=== PATIENT | female | born 2000 | race Asian ===

== ENCOUNTER → 2020-01-17 14:56 | Outpatient (CLI) | payer BC, SELFPAY ==
--- NOTE | 2020-01-17 14:57 | DI.ECHO.S_ITS ---
[facility] +---------+ : : [address] : [address] : : : : [id number] : : : : Phone: [phone]+ Echocardiogram Report + + :Name: DAPHNE SANCHEZ Study Date: 01/17/2020 Height: 64.5 in: :[facility] Weight: 115 lb : : Gender: Female BSA: 1.6 m2 : :: 2000 Age: 19 yrs BP: 114/88 mmHg: :Reason For Study: Father Bicuspid Valve, Sister has Pulmonic : :Stenosis : :Ordering Physician: PRASANNA, : :JOHN Performed By: Alyssa Garsia : :Referring: JOHN MIMS : + + Interpretation Summary Normal sinus rhythm. Normal LV size, wall thickness, wall motion and LV systolic function. EF is 60-65%. Normal chamber sizes. No significant valvular abnormalities. Specifically, no evidence of bicuspid aortic valve. No prior study available for comparison. Procedure: A two-dimensional transthoracic echocardiogram with color flow and Doppler was performed. The study quality was technically adequate. There is no prior echocardiogram noted for this patient. The patient was in normal sinus rhythm during the exam. The heart rate ranged between 68-80 bpm during the study. Left Ventricle: The left ventricle is normal in size. There is normal left ventricular wall thickness. The ejection fraction is estimated to be 60-65%. Diastolic parameters suggest probable normal left ventricular diastolic function and normal filling pressures. Right Ventricle: The right ventricle is normal in size and function. Atria: The left atrial size is normal. Right atrial size is normal. There is no Doppler evidence for an interatrial shunt. Mitral Valve: The mitral valve is normal in structure and function. Aortic Valve: The aortic valve is trileaflet. The aortic valve opens well. There is no aortic valve stenosis. No aortic regurgitation is present. Tricuspid Valve: The tricuspid valve is normal in structure and function. Pulmonary artery pressures cannot be estimated because of the lack of a measurable TR jet velocity but the IVC suggests a CVP of around 3 mmHg. There is trace tricuspid regurgitation. Pulmonic Valve: The pulmonic valve leaflets are thin and pliable; valve motion is normal. There is no pulmonic valvular stenosis. There is trace pulmonic regurgitation. Great Vessels: The aortic root is normal size. The dimensions of the ascending aorta are normal. The pulmonary artery is normal size. The IVC is of normal diameter and collapses greater than 50% with a sniff. This suggests a low right atrial pressure of 3 mm Hg. Pericardium/ Pleura There is no pericardial effusion. There is no pleural effusion. MMode/2D Measurements & Calculations LVIDd: 3.9 cm LVOT diam: 2.0 cm LVIDs: 2.7 cm Ao root diam: 2.6 cm FS: 32.1 % asc Aorta Diam: 2.3 cm EPSS: 0.60 cm Ao Arch Diam (Prox Trans): 1.8 cm IVSd: 0.69 cm LVPWd: 0.61 cm LV diana. diameter/BSA (cm/m^2): 2.5 LV sys. diameter/BSA (cm/m^2): 1.7 LA A2 area: 12.8 cm2 RA long axis: 3.5 cm LA A4 area: 10.8 cm2 RA area: 9.3 cm2 LA length (vol): 4.0 cm RA vol: 20.9 ml LA vol: 29.0 ml RA : 13.4 ml/m2 LA vol index: 18.7 ml/m2 IVC diam: 1.6 cm RVD1 (basal): 2.3 cm TAPSE: 2.0 cm Doppler Measurements & Calculations Ao V2 max: 110.7 cm/sec LVOT Max Moncho: 87.9 cm/sec Ao V2 mean: 74.3 cm/sec LV V1 max P.1 mmHg Ao max P.9 mmHg LV V1 VTI: 18.4 cm Ao mean P.5 mmHg MARTINE(I,D): 2.4 cm2 Ao V2 VTI: 23.8 cm MARTINE(V,D): 2.4 cm2 sev ratio: 0.78 MARTINE indexed to BSA (cm^2/m^2): 1.5 MV E max moncho: 81.4 cm/sec PA V2 max: 103.8 cm/sec MV A max moncho: 39.5 cm/sec PA V2 mean: 61.8 cm/sec MV E/A: 2.1 PA mean P.9 mmHg Med Peak E' Moncho: 13.6 cm/sec PA pr(Accel): 22.5 mmHg E/E' med: 6.0 Lat Peak E' Moncho: 17.4 cm/sec E/E' lat: 4.7 E/e' average: 5.3 MV dec time: 0.16 sec SVLVOT): 56.6 ml Electronically signed by: Xiomara Uriostegui M.D. on Reading Physician:01/18/2020 12:43 AM
== END ==
PROVIDERS: PCP Family Medicine; Referring Provider Family Medicine; Visit Provider Family Medicine
DX: Z13.6 Encounter for screening for cardiovascular disorders (principal); Z82.79 Family history of other congenital malformations, deformations and chromosomal abnormalities
CPT/HCPCS: 93306

== ENCOUNTER 2020-02-18 16:48 | Emergency (ER) | payer BC, SELFPAY ==
[2020-02-18] VITALS (7 sets, daily range): BP systolic 104–117; BP diastolic 68–81; PULSE 63–87; RESP 14–18; TEMP 36.7; O2SAT 99–100; BMI 20.6
[2020-02-18 17:24] LABS: Bacteria Urine Many (>30); Culture Indicated Urine Specimen Cultured; RBC Urine >100/HPF (0-5/HPF); Squamous Epithelial Cell Urine 0-1 /HPF (0-5/HPF); WBC Urine 10-30/HPF (0-5/HPF)
[2020-02-18] MEDS: SODIUM CHLORIDE 0.9% 1,000 ML 1000 ML IV (17:34)
--- NOTE | 2020-02-18 17:39 | ED_ITS ---
HPI - Abdominal Pain General Chief Complaint: Abdominal Pain Stated Complaint: abdominal cramps, nausea past hour Time Seen by Provider: 02/18/20 16:50 Source: patient Mode of arrival: Ambulatory Limitations: no limitations History of Present Illness HPI narrative: 19F non smoker, otherwise healthy female presents with her mother and a chief complaint of suprapubic tenderness with nausea. She denies any fever chills. She denies any vaginal bleeding or discharge. She does have blood in her urine. She states her pain is worse with motion and improves with rest. She is otherwise well and free of complaint. She went to the walk in clinic and was sent here. complaint: other Onset (ago): hour(s) Pain Consistency: constant Location: suprapubic Severity: mild Quality: cramping Radiation: none Relieving factors: rest Exacerbating factors: movement Associated symptoms: nausea and vomiting Related Data Patient : No Previous Rx's Medication Instructions Recorded cephalexin [Keflex] 500 mg PO QID 7 Days #28 cap 02/18/20 ondansetron 4 mg PO TID-QID PRN #10 tab 02/18/20 Allergies Allergy/AdvReac Type Severity Reaction Status Date / Time No Known Drug Allergies Allergy Verified 12/16/19 14:44 Review of Systems Constitutional Constitutional: Denies chills, Denies fatigue, Denies fever(s), Denies frequent falls, Denies lethargy and Denies weakness Eyes Eyes: Denies change in vision, Denies eye discharge, Denies irritation and Denies loss of vision ENT Ears, Nose, Mouth, and Throat: Denies change in voice, Denies dizziness, Denies neck pain, Denies sore throat and Denies throat swelling Cardiovascular Cardiovascular: Denies chest pain, Denies irregular heart rhythm, Denies lightheadedness, Denies palpitations, Denies dyspnea, Denies dyspnea on exertion and Denies orthopnea Respiratory Respiratory: Denies cough, Denies dyspnea, Denies dyspnea on exertion and Denies wheezing Gastrointestinal Gastrointestinal: Denies abdominal pain, Denies change in bowel habits, Denies diarrhea, Denies nausea and Denies vomiting Genitourinary Comments: suprapubic pain, hematuria Musculoskeletal Musculoskeletal: Denies neck pain and Denies numbness Integumentary/Breasts Skin/Breast: Denies pruritus, Denies erythema, Denies rash and Denies wounds Neurologic Neurologic: Denies behavioral changes, Denies confusion, Denies dizziness, Denies frequent falls, Denies loss of vision, Denies numbness and Denies weakness Psychiatric Psychiatric: Denies anxiety, Denies behavioral changes, Denies confusion, Denies depression, Denies homicidal ideation and Denies suicidal ideation Endocrine Endocrine: Denies fatigue, Denies flushing and Denies palpitations Hematologic/Lymphatic Hematologic/Lymphatic: Denies easy bruising Allergic/Immunologic Allergic/Immunologic: Denies urticaria, Denies throat swelling and Denies wheezing Patient History Surgical History H/O wisdom tooth extraction (Resolved) Family History Father Mitral valve replaced Grandfather Hyperlipidemia Social History marital status: unmarried,single occupational status: student Smoking Status: Never smoker alcohol intake: never substance use type: does not use Smoking Status: Never smoker Substance Use Type: does not use Exam Narrative Exam Narrative: GENERAL: [19] year old patient appears stated age. Well- nourished, well-developed patient, in mild distress. HEAD: Atraumatic. Normocephalic. EYES: Pupils equal round and reactive. Extraocular motions intact. No scleral icterus. No injection or drainage. ENT: Nose without bleeding, purulent drainage. Throat without erythema, tonsillar hypertrophy or exudate. Airway patent. NECK: Trachea midline. Non tender CARDIOVASCULAR: Regular rate and rhythm without murmurs, gallops, or rubs. RESPIRATORY: Clear to auscultation. Breath sounds equal bilaterally. No wheezes, rales, or rhonchi. GASTROINTESTINAL: Abdomen soft, mildly tender in suprapubic region, nondistended. EXTREMITIES: No edema or joint tenderness. BACK: Nontender without deformity or crepitance. No flank tenderness. NEURO: AOx3. SKIN: No rash or erythema of visible areas Initial Vital Signs Initial Vital Signs: Vital Signs Temperature 98.0 F 02/18/20 17:25 Pulse Rate 75 02/18/20 17:25 Respiratory Rate 16 02/18/20 17:25 Blood Pressure 115/80 02/18/20 17:25 Pulse Oximetry 100 02/18/20 17:25 Course Orders Ordered: ED Orders 02/18/20 16:59 Complete Blood Count AUTO DIFF Stat Comprehensive Metabolic Panel Stat 02/18/20 17:04 Urine Culture Stat Urine Microscopic Stat Discontinued Medications Cefazolin Sodium (Keflex 250 Mg Prepack) 1 bottle MISC SEEINSTR ONE Stop: 02/18/20 18:46 Sodium Chloride (Normal Saline 0.9%) 1,000 mls @ 1,000 mls/hr IV BOLUS ONE Stop: 02/18/20 17:58 Last Infusion: 02/18/20 17:44 Dose: 0 mls/hr Documented by: Admin: 02/18/20 17:34 Dose: 1,000 mls/hr Documented by: ALYSE Ceftriaxone Sodium/Dextrose (Rocephin) 1 gm in 50 mls @ 100 mls/hr IV NOW ONE Stop: 02/18/20 18:04 Last Admin: 02/18/20 18:50 Dose: Not Given Documented by: XIMENA Ondansetron HCl (Zofran Odt Prepack) 1 bottle MISC SEEINSTR ONE Stop: 02/18/20 18:46 Vital Signs Vital signs: Vital Signs - 8 hr 02/18/20 17:25 02/18/20 17:28 02/18/20 17:29 Temperature 98.0 F Pulse Rate 75 68 Respiratory Rate 16 14 Blood Pressure 115/80 114/81 Pulse Oximetry 100 100 02/18/20 17:30 02/18/20 18:00 02/18/20 18:30 Temperature Pulse Rate 67 63 87 Respiratory Rate 18 Blood Pressure 115/80 107/69 117/77 Pulse Oximetry 100 100 100 MDM - Abdominal Pain Lab Data Labs: Lab Results 02/18/20 Range/Units 17:04 Urine RBC >100/hpf H (0-5/HPF) Urine WBC 10-30/hpf H (0-5/HPF) Ur Squamous Epith Cells 0-1 /hpf (0-5/HPF) Urine Bacteria Many (>30) H (None) Ur Culture Indicated? Specimen cultured Point of care testing: Point of Care Testing Test Results Negative Urine Dip Bedside Urine Glucose Negative Bedside Urine Bilirubin + 1 Bedside Urine Ketone +/- 5 Urine Specific [place] 1.030 Bedside Urine Occult Blood +++ Bedside Urine pH 5.0 Bedside Urine Protein ++ 100 Bedside Urine Urobilinogen +/- 1mg Bedside Urine Nitrite + Positive Bedside Urine Leukocytes ++ 125 Esterase MDM Narrative Medical decision making narrative: Patient very much opposed to an IV, in fact 1 was placed and caused her discomfort so she demanded it be removed. I had extensive discussion with her and her mother about my opinion that this is likely to make her feel better much quicker though I do agree it is unlikely she has any significant underlying diagnosis. She has been given extensive return precautions and has the capacity to understand and repeat these. She has had her questions answered to her apparent satisfaction. Discharge Plan Departure Patient Disposition: Home Clinical Impression: UTI (urinary tract infection) Qualifiers: Urinary tract infection type: acute cystitis Hematuria presence: with hematuria Qualified Code(s): N30.01 - Acute cystitis with hematuria Instructions: DI for Urinary Tract Infection (UTI) Activity Restrictions/Additional Instructions: *You have been diagnosed with [acute urinary tract infection with cystitis and hematuria] *What to do: *Take medications as directed *Follow up with your primary care provider in 2-3 days, call for an appointment. Let them know you were seen in the Emergency Department and that we ask that you be seen in follow up *Return to ER if you should have any new, worsening or concerning symptoms, such as [fever, shaking chills, increasing pain or other bothersome symptoms] Prescriptions: New cephalexin [Keflex] 500 mg capsule 500 mg PO QID 7 Days Qty: 28 RF: 0 ondansetron 4 mg tablet,disintegrating 4 mg PO TID-QID PRN (Reason: nausea and vomiting) Qty: 10 RF: 0 Referrals: Awa Brown DO [Primary Care Provider] -
[2020-02-18] MEDS: cephALEXin 250 MG PREPACK 1 BOTTLE MISC (19:02)
[2020-02-18] MEDS: ONDANSETRON 4 MG ODT PREPACK 1 BOTTLE MISC (19:03)
== END 2020-02-18 19:15 | disposition home or self-care (01) ==
PROVIDERS: Emergency Provider Emergency Medicine; PCP Family Medicine
DX: N30.01 Acute cystitis with hematuria (principal)
CPT/HCPCS: 36415; 81003; 81015; 81025; 87086; 99283; 99284

== ENCOUNTER → 2020-09-13 12:30 | Outpatient (CLI) | payer BC, SELFPAY ==
[2020-09-13] MEDS: COVID-19 VACC #1, MRNA(MOD) 100 MCG/0.5 ML VIAL IM (12:36)
== END ==
PROVIDERS: PCP Family Medicine; Visit Provider Internal Medicine
DX: Z23 Encounter for immunization (principal)
CPT/HCPCS: 0011A; 91301

== ENCOUNTER → 2020-10-11 12:30 | Outpatient (CLI) | payer BC, SELFPAY ==
[2020-10-11] MEDS: COVID-19 VACC #2, MRNA(MOD) 100 MCG/0.5 ML VIAL IM (12:35)
== END ==
PROVIDERS: PCP Family Medicine; Visit Provider Internal Medicine
DX: Z23 Encounter for immunization (principal)
CPT/HCPCS: 0012A; 91301